=== PATIENT | male | born 1950 | race Caucasian/White ===

== ENCOUNTER 2020-08-12 10:43 | Outpatient (CLI) | payer OTHER | END 2020-08-12 10:49 | disposition home or self-care (01) | LOC: NUCLEAR 10:43 | PROVIDERS: ATTEND Internal Medicine | DX: I73.9 Peripheral vascular disease, unspecified (principal); E87.2 Acidosis ==

== ENCOUNTER 2020-08-19 10:22 | Outpatient (CLI) | payer OTHER | END 2020-08-19 10:24 | disposition home or self-care (01) | LOC: NUCLEAR 10:22 | PROVIDERS: ATTEND Internal Medicine | DX: I73.89 Other specified peripheral vascular diseases (principal); E87.2 Acidosis; I87.2 Venous insufficiency (chronic) (peripheral) ==

== ENCOUNTER 2023-03-17 09:04 | Emergency (ER) | payer OTHER ==
[~2023-03-17] VITALS: Ht 182.9 cm; Wt 77.1 kg
== END 2023-03-17 10:21 | disposition home or self-care (01) ==
LOC: ER 09:04
DX: N40.0 Benign prostatic hyperplasia without lower urinary tract symptoms (principal)

== ENCOUNTER 2024-03-11 07:23 | Outpatient (CLI) | payer OTHER | END 2024-03-11 07:27 | disposition home or self-care (01) | LOC: NUCLEAR 07:23 | PROVIDERS: ATTEND Internal Medicine | DX: I73.9 Peripheral vascular disease, unspecified (principal); I25.10 Atherosclerotic heart disease of native coronary artery without angina pectoris ==

== ENCOUNTER 2024-10-21 06:57 | Outpatient (CLI) | payer OTHER | END 2024-10-21 07:10 | disposition home or self-care (01) | LOC: SONOGRAMA 06:57 | PROVIDERS: ATTEND Internal Medicine Gastroenterology | DX: R10.9 Unspecified abdominal pain (principal) ==